=== PATIENT | female | born 1945 | race Caucasian/White ===

== ENCOUNTER → 2016-12-10 16:54 | Outpatient (CLI) | payer MEDICARE | END | disposition home or self-care (01) | LOC: D.MAMMO 11:00 | DX: Z12.31 Encounter for screening mammogram for malignant neoplasm of breast (principal) ==

== ENCOUNTER 2017-02-19 19:01 | Inpatient (IN) | payer MEDICARE ==
[~2017-02-19] VITALS: Ht 170.2 cm; Wt 78.1 kg
--- NOTE | ~2017-02-19 | HEMODYNAMI ---
PATIENT:ZION HAILE MEDICAL RECORD: [id number] : 45 [address] [facility] [id number] ADMISSION DATE: 02/20/17 Generatedon:02/21/201710:25 Patient name: ZION HAILE Patient #: [id number] SSN: DO B: 1945 Date of study: 02/21/2017 Page: Of Hemodynamic Procedure Report Patient Data Patient Demographics Procedure consent was obtained First Name: ZION Gender: Female Last Name: LAZARA : 1945 Patient #: [id number] Age: 71 year(s) Race: Unknown Additional ID: [id number] Contact details [address]: [address] [place] [address] [place] State: [place] City: [place] Zip code: [address] Past Medical History Allergies: No known allergies Admission Admission Data Admission Date: 02/20/2017 Admission Time: 0:14 Room #: D2127 Lab Results Lab Result Date: 02/21/2017 Lab Result Time: 4:55 Biochemistry Name Units Result Min Max BUN mg/dl 11 --(-*--)-- 7 18 Creatinine mg/dl 0.7 --(*---)-- 0.6 1.3 CBC Name Units Result Min Max Hematocrit % 33.6 *-(----)-- 42 54 Hemoglobin g/dl 11 *-(----)-- 13.5 17.5 Procedure Procedure Types Cath Procedure Diagnostic Procedure LHC LH w/Coronaries FFR/IVUS Intra-Coronary IVUS Initial Miscellaneous Procedures Moderate Sedation up to 30 minutes Procedure Description Procedure Date Procedure Date: 02/21/2017 Procedure Start Time: 10:00 Procedure End Time: 10:24 Procedure Staff Name Function Angelito Marin RT Scrub Austin Elliott MD Performing Physician Sher Phipps RN Nurse Zina Nelson RT Monitor Procedure Data Cath Procedure Fluoroscopy Diagnostic fluoroscopy Total fluoroscopy Time: 6.7 time: 6.7 min min Diagnostic fluoroscopy Total fluoroscopy dose: 591 dose: 591 mGy mGy Contrast Material Contrast Material Type Amount (ml) Isovue 300 110 Entry Location Entry Primary Successful Side Size Upsize Upsize Entry Closure Shin ccessful Closure Location (Fr) 1 (Fr) 2 (Fr) Remarks Device Remarks Radial Right 6 Fr Mechanical artery Short Compression Estimated blood loss: 10 ml Diagnostic catheters Device Type Used For End Catheter Placement Diagnostic Terumo 5Fr LV Angiography Dysart 110cm catheter Diagnostic Terumo 5Fr Left Coronary Dysart 110cm catheter Angiography Diagnostic Terumo 5Fr Right Coronary Dysart 110cm catheter Angiography Diagnostic Infinity 5Fr Right Coronary AR 2 MOD catheter Angiography Procedure Complications No complications Procedure Medications Medication Administration Route Dosage Oxygen NC 2 l/min Heparin Flush Bag added to field 2 bags (1000units/500ml NS) 0.9% NaCl I.V. 100 ml/hr Plavix P.O. 600 mg Fentanyl I.V. 50 mcg Versed I.V. 1 mg Radial Cocktail added to field 1 syringe (Verapomil 2mg/Nitro 400mcg/Heparin 1500units) Fentanyl I.V. 50 mcg Versed I.V. 1 mg Radial Cocktail I.A. 1 syringe (Verapomil 2mg/Nitro 400mcg/Heparin 1500units) Hemodynamics Rest HGB: 11 (g/dl) Heart Rate: 70 (bpm) Snapshots Pre Cath Intra NCS Post Cath Vital Signs Time Heart Resp SPO2 etCO2 [id number] NIBP (mmHg) Rhythm Pain Sedation Rate (ipm) (%) (mmHg) (mmHg) Status Level (bpm) 9:46:30 84 17 94 0 0 134/77(115) NSR 0 (11) 10(A) , No pain 9:50:41 70 18 97 0 0 122/76(101) NSR 0 (11) 10(A) , No pain 9:54:52 72 18 97 0 0 119/71(100) NSR 0 (11) 10(A) , No pain 9:59:01 72 17 98 0 0 116/70(105) NSR 0 (11) 10(A) , No pain 10:03:11 76 16 94 0 0 107/64(87) NSR 0 (11) 9(A) , No pain 10:07:19 74 16 93 0 0 105/62(85) NSR 0 (11) 9(A) , No pain 10:11:25 72 18 95 0 0 91/65(77) NSR 0 (11) 9(A) , No pain 10:15:25 72 17 96 0 0 110/67(94) NSR 0 (11) 9(A) , No pain 10:19:30 70 18 96 0 0 121/69(99) NSR 0 (11) 9(A) , No pain 10:22:26 68 11 95 0 0 111/68(93) NSR 0 (11) 9(A) , No pain Medications Time Medication Route Dose Verified Delivered Reason Notes Effectiveness by by 9:47:31 Oxygen NC 2 l/min Sher Sher Per Moise Phipps RN physician RN 9:47:40 Heparin Flush added 2 bags Sher Sher used for Bag to Moise Phipps RN procedure (1000units/500ml field RN NS) 9:47:49 0.9% NaCl I.V. 100 Sher Sher Per ml/hr Moise Phipps RN physician RN 9:48:03 Plavix P.O. 600 mg Sher Sher for Moise Phipps RN antiplatelet RN therapy 9:53:21 Fentanyl I.V. 50 mcg Sher Sher for sedation Moise Phipps RN RN 9:53:28 Versed I.V. 1 mg Sher Sher for sedation Moise Phipps RN RN 9:54:27 Radial Cocktail added 1 Sher Sher used for (Verapomil to syringe Moise Phipps RN procedure 2mg/Nitro field RN 400mcg/Heparin 1500units) 10:00:19 Fentanyl I.V. 50 mcg Sher Sher for sedation Moise Phipps RN RN 10:00:24 Versed I.V. 1 mg Sher Sher for sedation Moise Phipps RN RN 10:01:44 Radial Cocktail I.A. 1 Sher Townsendrey for (Verapomil syringe Moise Elliott MD vasodilation 2mg/Nitro RN 400mcg/Heparin 1500units) Procedure Log Time Note 9:21:28 Sher Phipps RN sent for patient. Start room use. 9:26:09 Informed consent obtained and on chart 9:26:26 Diagnostic Cath status Elective 9:26:29 Time tracking: Regular hours 9:26:32 Plan of Care:Hemodynamics will remain stable., Cardiac rhythm will remain stable., Comfort level will be maintained., Respiratory function will remain adequate., Patient/ family verbilizes understanding of procedure., Procedure tolerated without complication., Recovers from procedure without complications.. 9:26:52 H&P Date Dictated: 02/20/2017 Within 30 days and on chart.. 9:28:32 Lab Result : Creatinine 0.7 mg/dl 9::32 Lab Result : BUN 11 mg/dl 9::32 Lab Result : Hemoglobin 11 g/dl 9::32 Lab Result : Hematocrit 33.6 % 9:36:54 Patient received from PCU to CCL 1 Alert and oriented. Tansferred to table in Supine position. 9:36:55 Warm blankets applied, and awa hugger turned on for patient comfort. 9:36:56 Correct patient and procedure confirmed by team. 9:36:56 ECG and BP/O2 sat monitors applied to patient. 9:36:58 Full Disclosure recording started 9:45:29 Vital chart was started 9:47:31 Oxygen 2 l/min NC was administered by Sher Phipps RN; Per physician; 9:47:40 Heparin Flush Bag (1000units/500ml NS) 2 bags added to field was administered by Sher Phipps RN; used for procedure; 9:47:49 0.9% NaCl 100 ml/hr I.V. was administered by Sher Phipps RN; Per physician; 9:48:03 Plavix 600 mg P.O. was administered by Sher Phipps RN; for antiplatelet therapy; 9:50:09 Rhythm: sinus rhythm 9:50:14 Pre-procedure instructions explained to patient. 9:50:14 Pre-op teaching completed and patient verbalized understanding. 9:50:16 Family in waiting room. 9:50:18 Patient NPO since Midnight. 9:50:30 Patient allergic to No known allergies 9:50:32 Is the patient allergic to Iodine/contrast media? No. 9:50:34 Is patient on blood thinner?Yes 9:50:36 ACC The patient was administered the following blood thiners within the last 24 hours: ACCPlavix 9:50:46 Patient diabetic? No. 9:50:50 Previous problem with sedation/anesthesia? No ? 9:50:52 Snore? Yes 9:50:53 Sleep apnea? Yes 9:50:55 Deviated septum? No 9:50:55 Opens mouth fully? Yes 9:50:56 Sticks out tongue? Yes 9:50:58 Airway obstruction? No ? 9:51:15 Dentures? Yes Uppers-Out 9:51:23 Pre procedure: right dorsailis pedis pulse 2+ Normal; easily identifiable; not easily obliterated 9:51:27 Modified Jorge's test Ulnar < 7 seconds 9:51:29 Patient pain scale 0/10 ?. 9:51:37 IV patent on arrival in right forearm with 0.9% NaCl at [facility]. 9:51:42 Lab results completed and on chart. 9:51:46 Right Radial & Right Groin area was prepped with chlora-prep and draped in sterile fashion 9:51:47 Alarms reviewed by R. N. 9:51:48 Sharps counted by scrub and verified by R.N. 9:51:49 Final Timeout: patient, procedure, and site verified with staff and physician. All members of the team are in agreement. 9:51:52 Right Radial site verified by team. 9:51:55 Physical assessment completed. ASA score P 2 - A patient with mild systemic disease as per Austin Elliott MD. 9:51:58 Sedation plan: IV Moderate Sedation Versed, Fentanyl 9:52:05 Use device set Radial Dx 9:52:06 Acist Syringe opened to sterile field. 9:52:06 Medline Cath Pack opened to sterile field. 9:52:07 Bag Decanter opened to sterile field. 9:52:07 Terumo 6Fr Slender Glidesheath opened to sterile field. 9:52:07 St Frank 260cm J .035 wire opened to sterile field. 9:52:08 Acist Hand Control opened to sterile field. 9:52:09 Acist Manifold opened to sterile field. 9:52:09 Tegaderm 4 x 4 opened to sterile field. 9:52:09 MBrace Wrist Support opened to sterile field. 9:53:21 Fentanyl 50 mcg I.V. was administered by Sher Phipps RN; for sedation; 9:53:28 Versed 1 mg I.V. was administered by Sher Phipps RN; for sedation; 9:53:31 Baseline sample Acquired. 9:54:27 Radial Cocktail (Verapomil 2mg/Nitro 400mcg/Heparin 1500units) 1 syringe added to field was administered by Sher Phipps RN; used for procedure; 9:59:14 Zero performed for pressure channel P1 10:00:11 Procedure started. 10:00:17 Local anesthetic to right radial artery with Lidocaine 2% by Austin Elliott MD.INITIAL ACCESS ONLY 10:00:19 Fentanyl 50 mcg I.V. was administered by Sher Phipps RN; for sedation; 10:00:24 Versed 1 mg I.V. was administered by Sher Phipps RN; for sedation; 10:01:07 A 6 Fr Short sheath was inserted into the Right Radial artery 10:01:38 A Diagnostic Terumo 5Fr Dysart 110cm catheter was advanced over the wire and used for LV Angiography. 10:01:44 Radial Cocktail (Verapomil 2mg/Nitro 400mcg/Heparin 1500units) 1 syringe I.A. was administered by Austin Elliott MD; for vasodilation; 10:02:13 LV gram done using BAH 10:02:14 LV hemodynamics recorded. 10:02:16 Injector settings: Ml/sec: 5, Volume: 15, 10:02:22 EF : 55 % 10:02:41 A Diagnostic Terumo 5Fr Dysart 110cm catheter was advanced over the wire and used for Left Coronary Angiography. 10:04:06 A Diagnostic Terumo 5Fr Dysart 110cm catheter was advanced over the wire and used for Right Coronary Angiography.removed unable to cannulate RCA. 10:04:17 A Diagnostic Infinity 5Fr AR 2 MOD catheter was advanced over the wire and used for Right Coronary Angiography. 10:04:44 [employer] BasixCompak Inflation Kit opened to sterile field. 10:04:44 [place]uckett Whisper J 300cm 0.014 guide wire opened to sterile field. 10:05:06 Catheter removed. 10:05:18 [place] Qagan [place] Eagleye IVUS Catheter opened to sterile field. 10:05:18 Cordis 6FR XBLAD 3.5 guide catheter opened to sterile field. 10:06:29 6 Fr XBLAD 3.5 guide catheter was inserted over the wire 10:07:44 Whisper wire advanced. 10:07:57 IVUS catheter advanced over wire. 10:11:32 IVUS catheter removed over wire. 10:11:36 Wire removed. 10:11:41 Guide Catheter removed. unable to get back-up support 10:11:56 Medtronic Launcher 6Fr EBU 3.0 guide catheter opened to sterile field. 10:12:04 6 Fr EBU 3.0 guide catheter was inserted over the wire 10:15:10 Whisper wire advanced. 10:16:44 IVUS catheter advanced over wire. 10:18:03 Wire removed. unable to get back-up support 10:18:06 Guide Catheter removed. unable to get back-up support 10:19:23 Sheath removed intact; hemostasis achieved with Mechanical Compression to the Right Radial artery. 10:19:24 Procedure ended.(Physican Out) 10:19:45 Fluoroscopy time 06.70 minutes. 10:19:49 Fluoroscopy dose: 591 mGy 10:19:49 Flurop Dose total: 591 10:19:55 Contrast amount:Isovue 300 110ml. 10:19:56 Sharps counted by scrub and verified by R.N. 10:19:58 TR band inflated with 12cc of air. 10:19:59 Insertion/operative site no bleeding no hematoma. 10:20:07 Post right radial artery:stable, clean and dry 10:20:09 Post Procedure Pulses reassessed and unchanged 10:20:13 Post-procedure physical assessment completed. ASA score P 2 - A patient with mild systemic disease as per Austin Elliott MD. 10:20:16 Post procedure rhythm: unchanged. 10:20:20 Estimated blood loss: 10 ml 10:20:21 Post procedure instruction explained to patient.Patient verbalizes understanding. 10:20:21 Patient needs reinforcement of post procedure teaching. 10:21:10 Procedure type changed to Cath procedure, Diagnostic procedure, LHC, LHC w/Coronaries, FFR/IVUS, Intra-Coronary IVUS Initial, Miscellaneous Procedures, Moderate Sedation up to 30 minutes 10:21:14 Procedure Complication : No complications 10:21:17 See physician's report for complete and final results. 10:21:39 Terumo TR Band Standard opened to sterile field. 10:24:30 Procedure and supply charges have been captured, reviewed, submitted and are correct. 10:24:31 Vital chart was stopped 10:24:34 Report given to PCU. 10:24:37 Patient transfered to PCU with Bed. 10:24:51 Procedure ended. 10:24:51 Full Disclosure recording stopped 10:24:54 End room use (Document Last) Device Usage Item Name Manufacture Quantity Catalog Hospital Part Current Minimal Lot# / Number Charge Number Stock Stock Serial# Code Acist Acist 1 41433 927301 282105 045170 20 Syringe Medical Systems Inc Medline Cardinal 1 [id number] 52133 249409 5 Cath Pack Health Bag Microtek 1 2001S 572529 37042 996964 5 Decanter Medical Inc. Terumo 6Fr Terumo 1 [id number] 716260 426414 784373 [address] St Frank 1 723826 205437 145423 702388 30 260cm J .035 wire Acist Hand Acist 1 11309 688544 784694 198119 5 Control Medical Systems Inc Acist Acist 1 08394 525367 078710 805531 5 Manifold Medical Systems Inc Tegaderm 4 3M 1 1626W 180856 128335 804719 5 x 4 MBrace Advanced 1 140-0250-00 503573 94735 940907 5 Wrist Vascular Support Dynamics Diagnostic Terumo 1 40-6058 609464 700347 387500 5 Terumo 5Fr Dysart 110cm catheter Diagnostic Cardinal 1 [id number] 448423 954568 226785 20 Green Plugity xF Technologies Inc. 5Fr AR 2 MOD catheter Merit Merit 1 PU5809 633452 721358 808429 15 BasixComcok Medical Inflation Kit Puckett Puckett 1 [id number] 354416 385280 747008 5 Whisper J Vascular 300cm 0.014 guide wire [place] 1 [id number] 456063 960929 704826 8 Qagan [place] Eagleye IVUS Catheter Cordis 6FR Cardinal 1 [id number] 581172 846618 896892 10 XBLAD 3.5 Health guide catheter Medtronic Medtronic 1 [id number] 675510 14114 570413 0 Launcher 6Fr EBU 3.0 guide catheter Terumo TR Terumo 1 [id number] 932038 202763 444134 40 Band Standard Signature Audit [place] Stage Time Signature Unsigned Intra-Procedure 02/21/2017 Zina 10:25:04 AM Counts RT(R) Signatures Monitor : Zina Signature : Counts RT Date : Time : [address] [place] [address]
--- NOTE | ~2017-02-19 | PRO ---
PATIENT:ZION HAILE MEDICAL RECORD: [id number] : 45 LOCATION:D.M2 D.7 ADMISSION DATE: 02/20/17 PROCEDURE PERFORMED BY: FREDA MEJÍA MD PROCEDURE DATE: 02/21/17 PROCEDURES: 1. Left heart catheterization. 2. Selective coronary angiography. 3. Left ventriculogram. 4. Intravascular ultrasound left anterior descending. PROCEDURE IN DETAIL: After informed consent was obtained and after detailed explanation of risks, benefits, as well as alternative therapies, the patient elected to proceed with angiogram. The right radial area was prepped and draped in a normal sterile fashion. The right radial artery was cannulated via modified Seldinger technique with placement of 6-Nepali sheath. All catheters exchanged through this sheath. FINDINGS: The left ventriculogram was performed in standard 30 degree BAH view, reveals good cardiac wall motion and ejection fraction of 60%. SELECTIVE CORONARY ANGIOGRAPHY: 1. Left main was with no significant angiographic disease. 2. Left anterior descending has questionable stenosis in the mid vessel, however, intravascular ultrasound reveals that there is no significant stenosis in the left anterior descending itself, only tortuosity. 3. Left circumflex has mild irregularities but no flow-limiting stenosis. 4. The right coronary artery has mild irregularities but no flow-limiting stenosis. OVERALL IMPRESSION: No significant coronary artery disease is present. Chest pain is noncardiac in etiology. FREDA MEJÍA MD CC: [id number] DICTATION DATE: 02/21/172144 DRY ICE MAKER: JDB 02/21/172144 ADM IN [facility] [address] [id number]
--- NOTE | ~2017-02-19 | EC ---
PATIENT:ZION HAILE DATE OF SERVICE: 02/20/17 SEX: F MEDICAL RECORD: [id number] DATE OF : 45 LOCATION:D.M2 D.212 AGE OF PATIENT: 71 ADMISSION DATE: 02/20/17 REFERRING PHYSICIAN: INTERPRETING PHYSICIAN: FREDA ELLIOTT MD ECHOCARDIOGRAM REPORT ECHO CHARGES 4 ECHO COMPLETE CLINICAL DIAGNOSIS: CHF ECHOCARDIOGRAPHIC MEASUREMENTS (adult normal given) AC root (d.<3.7cm) 3.6 LV Septum d (<1.2 cm> 1.8 Valve Excursion 2.1 LV Septum (systole) 1.9 Left Atria (s.<4.0cm> 3.3 LVPW d(<1.2cm) 1.6 RV (d.<2.3cm) 3.3 LVPW (sytole) 1.8 LV diastole(<5.6CM) 4.4 MV E-F(>70mm/sec) LV systole 2.6 LVOT Diameter 1.7 MV exc.(>10mm) 1.6 Est.ejection fraction (50-75%) Pericardial Effusion N DOPPLER: LVIT A 88.0 E 64.0 LA RVSP 28 LVOT 113 AOP1/2T Asc. Ao 153 RVOT 79 RA PA 119 AV Gradient Peak 9.41 AV Mean 6.13 AV Area 2.2 MV Gradient Peak 3.49 MV Mean 1.51 MV Area COMMENTS: PA 119 CM/SEC OR 5.65 MM[facility] RVSP 28 MM[facility] Assistant Professor Surgical Technology: Latasha AVENDAÑO Optometry Assistant:1 Dr. Elliott TAPE# PACS TWO-DIMENSIONAL ECHOCARDIOGRAM WITH DOPPLER 1. Left ventricular chamber size is within normal limits. Left ventricular systolic function is normal. Overall ejection fraction is estimated at 60 percent. 2. Left atrium, right atrium, and right ventricular chamber sizes are within normal limits. 3. Valvular structures have normal structure and motion. 4. Doppler interrogation only reveals trace to mild tricuspid regurgitation; no other valvular insufficiency or stenosis. 5. No evidence of pericardial effusion or left ventricular thrombus. ECHOCARDIOGRAM REPORT [id number] ZION HAILE FREDA ELLIOTT MD CC: [id number] DICTATION DATE: 02/20/17 1400 COLD STORAGE SUPERVISOR: DM 02/21/17 1351 ADM IN [id number] [place] [address]
[2017-02-19 19:56] LABS: BASOPHILS 0.3 % (0-2); EOSINOPHILS 1.4 % (0-7); HEMATOCRIT 39.1 % (36.0-48.0); HEMOGLOBIN 12.8 g/dL (12-16); IMMATURE GRANULOCYTES 0.3 % (0-5); LYMPHOCYTES 13.6 % (15-50); MCH 30.5 pg (26.0-34.0); MCHC 32.7 g/dL (31.0-37.0); MCV 93.3 fL (80.0-100.0); MONOCYTES 14.4 % (2-11); RBC 4.19 10x6/uL (4.00-5.40); RDW 12.9 % (11.5-14.5); WBC 12.2 10x3/uL (4.8-10.8)
[2017-02-19 20:11] LABS: ALBUMIN 3.4 g/dL (3.4-5.0); ALKALINE PHOSPHATASE 85 U/L (46-116); ALT (SGPT) 30 U/L (10-68); BILIRUBIN - TOTAL 0.38 mg/dL (0.2-1.3); CALC OSMOLALITY 279 mosm/kg (275-300); CALCIUM 9.6 mg/dL (8.5-10.1); CARBON DIOXIDE 24.5 mmol/L (21.0-32.0); CHLORIDE - SERUM 100 mmol/L (98-107); CREATININE - SERUM 0.7 mg/dL (0.6-1.3); GLUCOSE 126 mg/dL (74-106); PROTEIN - SERUM 7.1 g/dL (6.4-8.2); SODIUM 138 mmol/L (136-145); UREA NITROGEN 17 mg/dL (7-18); eGFR NON AFRICAN AMERICAN 87 mL/min (90-120)
[2017-02-19 20:16] LABS: PLATELET COUNT 412 10x3/uL (130-400)
[2017-02-19 20:22] LABS: CHOL - HDL RATIO 2.9 ratio (2.3-4.1); CHOLESTEROL, TOTAL 150 mg/dL (0-200); CKMB 0.2 U/L (0.0-3.6); CREATINE KINASE 31 UL (21-215); HDL CHOLESTEROL 52 mg/dL (32-96); LDL CHOLESTEROL 76 mg/dL (0-100); LDL-HDL RATIO 1.5 ratio (1.5-3.5); PRO BNP 165 pg/mL (0-125); THYROID STIMULATING HORMONE 1.42 uIU/mL (0.36-3.74); TRIGLYCERIDE 112 mg/dL (30-200); TROPONIN-I < 0.017 ng/mL (0.000-0.060)
[2017-02-20] VITALS: BP 119/69
[2017-02-20 00:48] LABS: CKMB 0.1 U/L (0.0-3.6); CREATINE KINASE 12 UL (21-215); TROPONIN-I < 0.017 ng/mL (0.000-0.060)
--- NOTE | 2017-02-20 01:15 | NUR ---
RECIEVED TO ROOM 2126 FROM ER VIA STRETCHER. A&O. VITALS STABLE. IV TO RIGHT AC WITH NS INFUSING AT 100 CC/HR. AND SON AT BED SIDE. PLACED ON TELEMETRY, 91 SR. PT DENIES NEEDS AT THIS TIME, BED LOW, CL IN REACH.
[2017-02-20] MEDS ORDERED: NORVASC5 MG PO (01:43)
[2017-02-20] MEDS ORDERED: PREDNISONE5 MG PO (01:44)
[2017-02-20] MEDS ORDERED: PREDNISONE2.5 MG PO (01:45)
[2017-02-20] MEDS ORDERED: FUROSEMIDE20 MG PO (01:45)
[2017-02-20] MEDS ORDERED: FOLIC ACID1 MG PO (01:46)
[2017-02-20] MEDS ORDERED: METHOTREXATE2.5 MG PO (01:47)
[2017-02-20] MEDS ORDERED: ULTRAM50 MG PO (01:48)
[2017-02-20] MEDS ORDERED: GLYCOLAX527 GM PO (01:48)
[2017-02-20] MEDS ORDERED: NAPROXEN250 MG PO (01:48)
[2017-02-20 01:53] VITALS: Ht 170.2 cm; Wt 78.1 kg
--- NOTE | 2017-02-20 02:55 | NUR ---
RESTING WITH EYES CLOSED, RESPERATIONS EVEN, NO S/S DISTRESS NOTED.
[2017-02-20 04:00] VITALS: BP 95/49
[2017-02-20 07:04] LABS: CKMB 0.2 U/L (0.0-3.6); CREATINE KINASE 14 UL (21-215)
[2017-02-20 07:09] LABS: TROPONIN-I < 0.017 ng/mL (0.000-0.060)
--- NOTE | 2017-02-20 07:20 | NUR ---
ASSESSMENT DONE. DENIES NEEDS.
--- NOTE | 2017-02-20 08:16 | NUR ---
RESTS IN BED EATING BRK. IV PATENT. AT BS. WILL CONT. PLAN OF CARE.
[2017-02-20 08:22] VITALS: BP 113/61
[2017-02-20 12:14] VITALS: BP 96/49
[2017-02-20 12:32] LABS: CKMB 0.2 U/L (0.0-3.6); CREATINE KINASE 11 UL (21-215); TROPONIN-I < 0.017 ng/mL (0.000-0.060)
[2017-02-20 15:46] VITALS: BP 106/58
--- NOTE | 2017-02-20 18:18 | NUR ---
WITHOUT CHANGES OR DISTRESS NOTED AT THIS TIME. DENIES NEEDS.
[2017-02-20 19:00] VITALS: BP 105/42
[2017-02-21] VITALS (12 sets, daily range): BP systolic 83–121; BP diastolic 47–98
--- NOTE | 2017-02-21 02:30 | NUR ---
PT RESTING WELL WITHOUT C/O OR DISTRESS NOTED. NO NEEDS VOICED. WILL CONT TO MONITOR.
[2017-02-21 05:03] LABS: BASOPHILS 0.1 % (0-2); EOSINOPHILS 1.1 % (0-7); HEMATOCRIT 33.6 % (36.0-48.0); IMMATURE GRANULOCYTES 0.2 % (0-5); LYMPHOCYTES 13.6 % (15-50); MCH 30.5 pg (26.0-34.0); MCHC 32.7 g/dL (31.0-37.0); MCV 93.1 fL (80.0-100.0); MEAN PLATELET VOLUME 9.5 fL (7.4-10.4); MONOCYTES 12.4 % (2-11); NEUTROPHILS 72.6 % (40-80); PLATELET COUNT 350 10x3/uL (130-400); RBC 3.61 10x6/uL (4.00-5.40); RDW 12.8 % (11.5-14.5)
[2017-02-21 05:09] LABS: WBC 9.1 10x3/uL (4.8-10.8)
[2017-02-21 05:20] LABS: CALC OSMOLALITY 275 mosm/kg (275-300); CALCIUM 8.9 mg/dL (8.5-10.1); CARBON DIOXIDE 26.9 mmol/L (21.0-32.0); CHLORIDE - SERUM 103 mmol/L (98-107); CREATININE - SERUM 0.7 mg/dL (0.6-1.3); GLUCOSE 113 mg/dL (74-106); POTASSIUM - SERUM 3.6 mmol/L (3.5-5.1); SODIUM 138 mmol/L (136-145); eGFR NON AFRICAN AMERICAN 87 mL/min (90-120)
[2017-02-21 05:29] LABS: UREA NITROGEN 11 mg/dL (7-18)
--- NOTE | 2017-02-21 08:00 | NUR ---
PT IS RESTING IN BED WITH EYES CLOSED. AWOKE EASILY TO VERBAL STIMULI. DENIES PAIN OR DISCOMFORT AT THIS TIME. STATES: "IM JUST READY TO GET THIS DAY OVER WITH." SPOUSE IS AT BEDSIDE. IV INFUSING TO RIGHT ARM WITHOUT DIFFICULTY. NO REDNESS OR EDEMA NOTED AT THE INSERTION SITE. SR'S ARE UP X 3 IN BED. CALL LIGHT AND BEDSIDE TABLE ARE WITHIN EASY REACH.
--- NOTE | 2017-02-21 08:03 | NUR ---
IV PATENT. AT BS. NO NEEDS VOICED. WILL MONITOR.
--- NOTE | 2017-02-21 09:36 | NUR ---
PT DEPARTED UNIT EN ROUTE TO SUPERVISOR ASSEMBLY STOCK.
--- NOTE | 2017-02-21 10:30 | NUR ---
PT RETURNED FROM CATH. REPORTED TO HAVE NO BLOCKAGES. TR BAND INTACT TO RIGHT WRIST. VSS. PERIPHERAL PULSES ARE GOOD. PT IS AWAKE, BUT VERY DROWSY. FAMILY MEMBERS ARE AT THE BEDSIDE.
--- NOTE | 2017-02-21 11:54 | NUR ---
PT IS RESTING IN BED WITH EYES CLOSED. OPENS EYES TO VERBAL STIMULI. DENIES ACUTE DISCOMFORT AT THIS TIME. PERIPHERAL PULSES ARE GOOD. NO S@S OF BLEEDING NOTED. 2 FAMILY MEMBERS ARE AT THE BEDSIDE.
--- NOTE | 2017-02-21 15:44 | NUR ---
PT IS RESTING IN BED WITH EYES OPEN. ALERT AND ORIENTED X 3. DENIES ACUTE DISCOMFORT. PERIPHERAL PULSES ARE GOOD. NO S@S OF BLEEDING NOTED.
--- NOTE | 2017-02-21 19:33 | NUR ---
INITIAL ROUNDS COMPLETED. NO DISTRESS NOTED. WILL CONTINUE TO MONITOR.
--- NOTE | 2017-02-21 21:57 | NUR ---
PM MEDS GIVEN. SON AT BEDSIDE.
[2017-02-22] VITALS: BP 135/71
--- NOTE | 2017-02-22 00:30 | NUR ---
PT AWAKE; DENIES ANY DISCOMFORT. NO CHANGES NOTED TO R WRIST. WILL CONTINUE TO MONITOR.
--- NOTE | 2017-02-22 02:19 | NUR ---
PT RESTING WITH EYES CLOSED. RESP EVEN AND REGULAR. SR UP X2, CALL LIGHT WITHIN REACH.
[2017-02-22 04:00] VITALS: BP 107/57
--- NOTE | 2017-02-22 04:50 | NUR ---
NO CHANGES TO R WRIST NOTED. PT DENIES ANY DISCOMFORT. WILL CONTINUE TO MONITOR.
[2017-02-22 04:53] LABS: BASOPHILS 0.2 % (0-2); EOSINOPHILS 1.5 % (0-7); HEMATOCRIT 33.9 % (36.0-48.0); HEMOGLOBIN 11.1 g/dL (12-16); IMMATURE GRANULOCYTES 0.3 % (0-5); LYMPHOCYTES 13.3 % (15-50); MCH 30.4 pg (26.0-34.0); MCHC 32.7 g/dL (31.0-37.0); MCV 92.9 fL (80.0-100.0); MEAN PLATELET VOLUME 9.8 fL (7.4-10.4); MONOCYTES 8.9 % (2-11); NEUTROPHILS 75.8 % (40-80); PLATELET COUNT 364 10x3/uL (130-400); RBC 3.65 10x6/uL (4.00-5.40); RDW 12.5 % (11.5-14.5); WBC 10.7 10x3/uL (4.8-10.8)
[2017-02-22 05:39] LABS: CALC OSMOLALITY 277 mosm/kg (275-300); CALCIUM 8.8 mg/dL (8.5-10.1); CARBON DIOXIDE 26.4 mmol/L (21.0-32.0); CHLORIDE - SERUM 102 mmol/L (98-107); CREATININE - SERUM 0.8 mg/dL (0.6-1.3); GLUCOSE 122 mg/dL (74-106); POTASSIUM - SERUM 3.5 mmol/L (3.5-5.1); SODIUM 138 mmol/L (136-145); eGFR NON AFRICAN AMERICAN 75 mL/min (90-120)
[2017-02-22 05:49] LABS: UREA NITROGEN 16 mg/dL (7-18)
--- NOTE | 2017-02-22 06:42 | NUR ---
VSS THROUGHOUT NIGHT. PT STATED MORPHINE HELPED CHRONIC BACK PAIN. NEEDS MET;WILL CONTINUE TO MONITOR.
--- NOTE | 2017-02-22 07:49 | NUR ---
ASSESSMENT COMPLETED. TELEMERTY SHOWS SR AT 75. RIGHT AC SL, PATENT. DENIES ANY NEEDS.RIGHT WRIST CATH SITE WITH DRSG DRY AND INTACT. FAMMILY AT BEDSIDE. WILL MONITOR
[2017-02-22 08:00] VITALS: BP 110/61
[2017-02-22 12:00] VITALS: BP 91/67
[2017-02-22 16:00] VITALS: BP 106/53
--- NOTE | 2017-02-22 17:44 | NUR ---
LYING QUIETLY WITH FAMILY AT BEDSIDE. DENIES ANY NEEDS. WILL MONITOR.
--- NOTE | 2017-02-22 18:28 | NUR ---
HOB UP LYING QUIETLY, DENIES ANY NEEDS. SR UP TIMES 2 WITH CALL LIGHT IN REACH
[2017-02-22 20:00] VITALS: BP 100/56
--- NOTE | 2017-02-22 22:01 | NUR ---
REC'D PATIENT SLEEPING IN BED. AT BEDSIDE. WOKE UP. ALERT AND ORIENTED X4. NO DISTRESS NOTED. DENIED PAIN AT THIS TIME. COMPLAINED OF NO BM FOR LAST SEVERAL DAYS. IS TAKING MIRALAX ONCE A DAY. DENIED FURTHER NEEDS AT THIS TIME. INSTRUCTED TO CALL IF NEEDED ANYTHING. VERBALIZED UNDERSTANDING. WILL CONT TO [facility]. WILL ADMIN PM/AM MEDS PRESCRIBED. BED LOW, LOCKED, CALL LIGHT IN REACH.
[2017-02-23 04:00] VITALS: BP 107/71
--- NOTE | 2017-02-23 05:55 | NUR ---
RESTING IN BED. NO DISTRESS NOTED. AT BEDSIDE. GAVE AM MEDS. DENIED PAIN AND FURTHER NEEDS AT THIS TIME. INSTRUCTED TO CALL IF NEEDED ANYTHING. BED LOW, LOCKED, CALL LIGHT IN REACH.
[2017-02-23 06:48] LABS: BASOPHILS 0.3 % (0-2); EOSINOPHILS 1.8 % (0-7); HEMATOCRIT 35.4 % (36.0-48.0); HEMOGLOBIN 11.6 g/dL (12-16); IMMATURE GRANULOCYTES 0.3 % (0-5); LYMPHOCYTES 20.3 % (15-50); MCH 30.4 pg (26.0-34.0); MCHC 32.8 g/dL (31.0-37.0); MCV 92.9 fL (80.0-100.0); MEAN PLATELET VOLUME 9.9 fL (7.4-10.4); MONOCYTES 12.7 % (2-11); NEUTROPHILS 64.6 % (40-80); PLATELET COUNT 389 10x3/uL (130-400); RBC 3.81 10x6/uL (4.00-5.40); RDW 12.6 % (11.5-14.5)
[2017-02-23 06:52] LABS: WBC 6.9 10x3/uL (4.8-10.8)
[2017-02-23 06:59] LABS: CALC OSMOLALITY 278 mosm/kg (275-300); CALCIUM 9.4 mg/dL (8.5-10.1); CARBON DIOXIDE 28.9 mmol/L (21.0-32.0); CHLORIDE - SERUM 101 mmol/L (98-107); CREATININE - SERUM 0.8 mg/dL (0.6-1.3); GLUCOSE 114 mg/dL (74-106); POTASSIUM - SERUM 3.7 mmol/L (3.5-5.1); SODIUM 138 mmol/L (136-145); UREA NITROGEN 17 mg/dL (7-18); eGFR NON AFRICAN AMERICAN 75 mL/min (90-120)
--- NOTE | 2017-02-23 07:44 | NUR ---
ASSESSMENT COMPLETED. TELEMERTY SHOWS SR AT 77. RIGHT AC SL.UP WITH ASSIST,EDEMA TO BOTH LEGS AND FEET. DENIES ANY PAIN OR OTHER NEEDS. FAMILY AT BEDSIDE. CALL LIGHT IN REACH WITH SR UP. WILL MONITOR
[2017-02-23 08:38] VITALS: BP 125/72
[2017-02-23 12:36] VITALS: BP 124/85
--- NOTE | 2017-02-23 12:40 | NUR ---
UP IN BEDSIDE CHAIR FOR LUNCH. NO NEEDS VOICED. WILL MONITOR
[2017-02-23 16:23] VITALS: BP 93/63
[2017-02-23 20:00] VITALS: BP 130/69
[2017-02-24 04:00] VITALS: BP 128/71
[2017-02-24 06:50] LABS: BASOPHILS 0.3 % (0-2); EOSINOPHILS 2.4 % (0-7); HEMATOCRIT 36.7 % (36.0-48.0); HEMOGLOBIN 11.9 g/dL (12-16); IMMATURE GRANULOCYTES 0.3 % (0-5); LYMPHOCYTES 30.3 % (15-50); MCH 30.3 pg (26.0-34.0); MCHC 32.4 g/dL (31.0-37.0); MCV 93.4 fL (80.0-100.0); NEUTROPHILS 54.7 % (40-80); PLATELET COUNT 434 10x3/uL (130-400); RBC 3.93 10x6/uL (4.00-5.40); RDW 12.6 % (11.5-14.5); WBC 7.8 10x3/uL (4.8-10.8)
[2017-02-24 07:15] LABS: CALC OSMOLALITY 276 mosm/kg (275-300); CALCIUM 9.1 mg/dL (8.5-10.1); CARBON DIOXIDE 27.1 mmol/L (21.0-32.0); CHLORIDE - SERUM 100 mmol/L (98-107); CREATININE - SERUM 0.8 mg/dL (0.6-1.3); GLUCOSE 95 mg/dL (74-106); POTASSIUM - SERUM 3.3 mmol/L (3.5-5.1); SODIUM 137 mmol/L (136-145); eGFR NON AFRICAN AMERICAN 75 mL/min (90-120)
[2017-02-24 07:17] LABS: UREA NITROGEN 22 mg/dL (7-18)
--- NOTE | 2017-02-24 07:28 | NUR ---
AM ROUNDS- PT IN BED, WITH EYES CLOSED, CALL LIGHT IN REACH, BEDSIDE RAILS X2, BED LOW AND WHEELS LOCKED. FAMILY AT BEDSIDE, NAD NOTED, WILL CONTINUE TO MONITOR.
[2017-02-24 08:00] VITALS: BP 115/62
--- NOTE | 2017-02-24 08:20 | NUR ---
AM MEDS GIVEN AT THIS TIME. PT IN BED, ASKING ABOUT BP MEDS. INFORMED PT THAT HER BP MEDS ARE ON HOLD RIGHT NOW. PT DENIES ANY NEEDS AT THIS TIME. CALL LIGHT IN REACH, FAMILY AT BEDSIDE, NAD NOTED, WILL CONTINUE TO MONITOR.
[2017-02-24 12:17] VITALS: BP 116/64
[2017-02-24 14:50] VITALS: BP 111/68
[2017-02-24 17:12] LABS: ERYTHROCYTE SEDIMENTATION RATE 20 mm/hr (0-30)
[2017-02-24 20:00] VITALS: BP 109/67
--- NOTE | 2017-02-24 20:22 | NUR ---
ASSESSMENT COMPLETE PER FLOWSHEET. VOICES NO CO AT TIME.
--- NOTE | 2017-02-24 20:30 | NUR ---
IV DCD WITH CATH INTACT SITE RED. R FA 20 G X 1. NO CO AT TIME.
[2017-02-25] VITALS: BP 113/64
--- NOTE | 2017-02-25 00:31 | NUR ---
SLEEPING NO DISTRESS NOTED. AT THE BEDSIDE. CALL LIGHT WITH IN REACH.
--- NOTE | 2017-02-25 03:40 | NUR ---
SLEEPING NO DISTRESS NOTED. AT BEDSIDE.
[2017-02-25 04:00] VITALS: BP 123/68
--- NOTE | 2017-02-25 04:46 | NUR ---
AWAKE MEDS GIVEN. VOICES NO CO AT TIME.
[2017-02-25 06:10] LABS: BASOPHILS 0.4 % (0-2); EOSINOPHILS 2.9 % (0-7); HEMOGLOBIN 11.6 g/dL (12-16); IMMATURE GRANULOCYTES 0.4 % (0-5); LYMPHOCYTES 24.7 % (15-50); MCH 30.9 pg (26.0-34.0); MCHC 33.1 g/dL (31.0-37.0); MCV 93.1 fL (80.0-100.0); MEAN PLATELET VOLUME 9.7 fL (7.4-10.4); MONOCYTES 13.7 % (2-11); NEUTROPHILS 57.9 % (40-80); PLATELET COUNT 404 10x3/uL (130-400); RBC 3.76 10x6/uL (4.00-5.40); RDW 12.6 % (11.5-14.5)
[2017-02-25 06:31] LABS: CALC OSMOLALITY 279 mosm/kg (275-300); CALCIUM 8.8 mg/dL (8.5-10.1); CARBON DIOXIDE 25.3 mmol/L (21.0-32.0); CHLORIDE - SERUM 101 mmol/L (98-107); CREATININE - SERUM 0.7 mg/dL (0.6-1.3); GLUCOSE 108 mg/dL (74-106); POTASSIUM - SERUM 3.6 mmol/L (3.5-5.1); SODIUM 138 mmol/L (136-145); UREA NITROGEN 20 mg/dL (7-18); eGFR NON AFRICAN AMERICAN 87 mL/min (90-120)
--- NOTE | 2017-02-25 07:14 | NUR ---
AM ROUNDS- PT IN BED, WITH EYES CLOSED. BED LOW AND WHEELS LOCKED, BEDRAILS X2. CALL LIGHT IN REACH, RT FA IV SL. FAMILY AT BEDSIDE, NAD NOTED, WILL CONTINUE TO MONITOR.
--- NOTE | 2017-02-25 08:45 | NUR ---
AM MEDS GIVEN EXCEPT MIRALAX PT REFUSED, PT IN BED, DENIES ANY NEEDS AT THIS TIME. CALL LIGHT IN REACH, FAMILY AT BEDSIDE, NAD NOTED, WILL CONTINUE TO MONITOR.
[2017-02-25 13:08] VITALS: BP 107/62
[2017-02-25 13:09] VITALS: BP 113/72
[2017-02-25 13:16] LABS: RMSF IGM 1.56 index (0.00-0.89)
[2017-02-25 16:30] VITALS: BP 115/76
[2017-02-25] MEDS ORDERED: BREO ELLIPTA 21 EACH INH (17:42)
[2017-02-25] MEDS ORDERED: VIBRAMYCIN 100100 MG PO (17:55)
--- NOTE | 2017-02-25 19:26 | NUR ---
PT AWAKE, ALERT, ORIENTED, READY TO D/C'D. PT DENIES ANY NEEDS.
--- NOTE | 2017-02-25 20:15 | NUR ---
DISCHARGE INSTRUCTIONS GIVEN TO PT AND FAMILY AT BEDSIDE, QUESTIONS ANSWERED. PT AND FAMILY VERBALLY STATE THEY WILL CALL DR. GIL'S OFFICE TOMORROW TO SCHEDULE FOLLOW UP APPT AND HOUSE CALLS. RX FOR BREO AND VIBRAMYCIN GIVEN TO PT. I HAVE ALSO GIVEN THEM THE NUMBER TO THIS UNIT TO CALL ME WITH ANY QUESTIONS. PT TAKEN VIA WHEELCHAIR DOWN TO CAR.
[2017-02-26 15:20] LABS: EHRLICHIA CHAFF IGG Negative (Neg:<1:64); EHRLICHIA CHAFF IGM Negative (Neg:<1:20); HGE IGG TITER Negative (Neg:<1:64); HGE IGM TITER Negative (Neg:<1:20)
[2017-02-27 13:17] LABS: F. TULARENSIS - IGG Negative (()); F. TULARENSIS - IGM Negative (())
== END 2017-02-25 20:18 | disposition home or self-care (01) | DRG 287 ==
LOC: OBSVTIME → D.ER 19:01 → D.M2 02-20 00:04 → OBSVTIME 02-20 00:14 → D.ER 02-20 00:14 → D.M2 02-20 00:14
PROVIDERS: Family Medicine; Internal Medicine Interventional Cardiology; ADMIT Emergency Medicine
PROC: B2151ZZ Fluoroscopy of Left Heart using Low Osmolar Contrast (ICD-10-PCS; 2017-02-21)
PROC: 4A023N7 Measurement of Cardiac Sampling and Pressure, Left Heart, Percutaneous Approach (ICD-10-PCS; 2017-02-21)
PROC: B240ZZ3 Ultrasonography of Single Coronary Artery, Intravascular (ICD-10-PCS; 2017-02-21)
PROC: B2111ZZ Fluoroscopy of Multiple Coronary Arteries using Low Osmolar Contrast (ICD-10-PCS; principal; 2017-02-21 08:30)
DX: R07.89 Other chest pain (principal); G47.33 Obstructive sleep apnea (adult) (pediatric); I10 Essential (primary) hypertension; M79.89 Other specified soft tissue disorders; I87.2 Venous insufficiency (chronic) (peripheral); J45.909 Unspecified asthma, uncomplicated; M06.9 Rheumatoid arthritis, unspecified; F41.9 Anxiety disorder, unspecified